=== PATIENT | male | born 1990 | race Hispanic/Latino ===

== ENCOUNTER 2020-11-20 11:10 | Emergency (ER) | payer OTHER | END 2020-11-20 12:47 | disposition home or self-care (01) | LOC: EDH 11:10 | DX: R05 Cough (principal); Z20.822 Contact with and (suspected) exposure to COVID-19 | CPT/HCPCS: 87426; 99283; U0003 ==

== ENCOUNTER 2021-03-14 03:59 | Emergency (ER) | payer OTHER | END 2021-03-14 04:39 | LOC: EDH 03:59 | DX: Z02.83 Encounter for blood-alcohol and blood-drug test (principal); Z72.0 Tobacco use | CPT/HCPCS: 36415 ==